=== PATIENT | female | born 1940 | race Caucasian/White ===

== ENCOUNTER 2017-07-03 19:31 | Observation (INO) | payer MEDICARE, OTHER ==
[~2017-07-03] VITALS: Ht 162.6 cm; Wt 69.4 kg
--- NOTE | ~2017-07-03 | EKG ---
[place] [address] [address] [facility] [place] [address] ELECTROCARDIOGRAM REPORT Name: PONCE HASKINS Room #: 354-P [facility] M.R.#: [id number] Admission: 07/03/17 Attend Phys: Krishna Lu MD Discharge: Date of : 36 Report #: [id number] THIS REPORT FOR: //name// [facility] ED Test Date: 2017-07-03 Test Time: 20:12:13 Pat Name: PONCE HASKINS Department: Room: [facility] Gender: F Physician Practice Administrator[place] [facility] 1940 Requested By: Daniel Lopez Order Number: [id number] MD: Pepe Almonte Measurements Intervals [place] Rate: 71 P: 30 [place]: 199 QRS: -35 QRSD: 94 T: 122 QT: 394 QTc: 429 Interpretive Statements Sinus rhythm LVH with secondary repolarization abnormality Inferior infarct, age indeterminate Lateral leads are also involved Compared to ECG 05/24/2016 07:08:19 Ventricular premature complex(es) no longer present Inferior and lateral repolarization abnormality is persistent Electronically Signed On 07-04-2017 8:24:39 CDT by Pepe Almonte [email or web address] <ELECTRONICALLY SIGNED> By: Pepe Almonte MD, [facility] 07/04/17 0824 11 11 Pepe Almonte MD, [facility] /EPI
--- NOTE | ~2017-07-03 | DSS ---
[facility] [place] [address] SHORT STAY SUMMARY Name: PONCE HASKINS Room #: 354-P [facility] Antonio Esqueda#: [id number] Admission: 07/03/17 Attend Phys: Krishna uL MD Discharge: 07/04/17 Date of : 36 Report #: [id number] THIS REPORT FOR: //name// CC: Krishna Lu ATTENDING PHYSICIAN: Krishna Lu M.D. CHIEF COMPLAINT: Epigastric pain and shortness of breath. HISTORY OF PRESENT ILLNESS: The patient is a 77-year-old female with dementia from [facility], who was sent to the Emergency Room with reports of chest pain. They noted she was having some pain in the lower part of the chest and epigastric area with associated shortness of breath and low blood pressure. She was given nitroglycerin en route by EMS, with resolution of her symptoms. By the time she presented to the ER, she had no complaints. She has been pleasantly confused at her baseline overnight, and this morning, is offering no complaints. PAST MEDICAL HISTORY: Hypertension, asthma, dyslipidemia, osteoporosis and coronary artery disease. PAST SURGICAL HISTORY: Unknown. FAMILY HISTORY: Noncontributory. SOCIAL HISTORY: She has been living at [facility] for a number of years. No known chronic alcohol or tobacco use. ALLERGIES: CELEBREX, PENICILLIN, MIRAPEX AND SULFA. MEDICATIONS: Lexapro, aspirin, Advair, gabapentin, Lipitor, multivitamin, Plavix, nitroglycerin sublingual, Singulair, memantine, losartan, Colace, Pepcid, hydrocodone, milk of magnesia, Senokot and Tylenol. REVIEW OF SYSTEMS: She is pleasantly confused. She denies any chest pain, shortness of breath or abdominal symptoms. PHYSICAL EXAMINATION: VITAL SIGNS: Temperature 36.9, pulse 72, respirations 22 and blood pressure 139/77. GENERAL: She is awake, alert, in no distress. HEAD AND NECK: Unremarkable. LUNGS: Clear. HEART: Regular. ABDOMEN: Soft. Normoactive bowel sounds. No rebound or guarding. EXTREMITIES: No edema. NEUROLOGIC: Motor strength 3/5 and equal throughout. [place] [address] SHORT STAY SUMMARY Name: PONCE HASKINS Room #: 354-P [facility] Antonio Esqueda#: [id number] Admission: 07/03/17 Attend Phys: Krishna Lu MD Discharge: 07/04/17 Date of : 36 Report #: [id number], time or situation. LABORATORY DATA: Serial troponin lab levels are negative. EKG showed LVH repolarization changes. HOSPITAL COURSE: She was monitored on telemetry overnight, which was unremarkable, as mentioned. Serial troponin levels were negative. She had no other interval complication. At this point, there are no plans for invasive workup, given her dementia and debility. DISPOSITION: She will return to [facility] resuming all normal medication, with regular diet and activity as tolerated. DNR status and she will follow up with Dr. Lu. <ELECTRONICALLY SIGNED> By: Baljinder Grullon MD 07/04/17 1630 0855 1010 Baljinder Grullon MD /nt
[~2017-07-03 19:31] MED LIST: ACCUNEB SO1.25 MG/1 INH; ADVAIR HFA115 MCG/21 PO; ALBUTEROL2.5 MG/0.5; ASPIR 8181 MG PO; ATORVASTATIN CA40 MG PO; AYR SALINE50 M1; AZITHROMYCIN 2250 MG PO; CARDIZEM CD120 MG PO; CENTRUM SILVER1 EAC2 PO; CLARITIN10 MG PO; COLACE100 MG PO; COMBIVENT; COZAAR 50 MG TA50 M2 PO; DUONEB 2.5-0.5 M3 ML INH; FLOVENT HFA 1110 MCG INH; HYDROCODONE-APA1 TA1 PO; LEVAQUIN 500 M500 M2 PO; LEXAPRO 10 MG T10 M1 PO; LEXAPRO20 MG PO; LOMOTIL TABLET1 EACH PO; MILK OF MA2400 MG/10 PO; MONTELUKAST SOD10 MG PO; MUCINEX600 MG PO; NAMENDA 10 MG T10 MG PO; NEURONTIN100 MG PO; NITROGLYCERIN0.4 MG PO; NORCO 5-325 TA1 EACH PO; PEPCID20 MG PO; PLAVIX 75 MG TA75 M1 PO; PREDNISONE 20 M20 MG PO; RANITIDINE 150150 MG PO; ROBITUSSIN100 MG/53 PO; SENNA8.6 MG PO; SEROQUEL 12.512.5 MG PO; SEROQUEL 25 MG25 M1 PO; TOPROL XL25 MG PO; TOPROL XL50 MG PO; TRAZODONE HCL50 MG PO; TUMS PO; TYLENOL325 MG PO; VOLTAREN GEL 1100 G2 TOP; XOPENEX 0.63 MG/3 M1 INH
[2017-07-03 19:37] VITALS: BP 119/56
[2017-07-03 20:12] LABS: ABSOLUTE NEUTROPHILS 4.4 thou/uL (1.4-8.2); BASOPHILS 0.6 % (0.0-2.0); HEMATOCRIT 38.2 % (37.0-47.0); MCH 32.1 pg (26.0-34.0); MCHC 34.2 g/dL (28.0-37.0); MCV 93.8 fL (80.0-100.0); MONOCYTES 9.5 % (1.0-8.0); PLATELET COUNT 204 thou/uL (150-400); POLYS 57.9 % (36.0-66.0); RBC 4.07 mil/uL (4.20-5.00); WBC 7.6 thou/uL (4.0-11.0)
[2017-07-03 20:19] LABS: ANION GAP 10 mmol/L (7-16); BUN 18 mg/dL (7-18); CALCIUM 9.1 mg/dL (8.5-10.1); CHLORIDE 105 mmol/L (98-107); CO2 25 mmol/L (21-32); CREATININE 1.1 mg/dL (0.6-1.0); GLUCOSE 169 mg/dL (74-106); SODIUM 140 mmol/L (136-145)
[2017-07-03 20:24] LABS: PROTIME 10.3 Seconds (9.3-11.4)
[2017-07-03 20:27] LABS: ALBUMIN 3.5 g/dL (3.4-5.0); MAGNESIUM 1.6 mg/dL (1.8-2.4); SGOT 20 U/L (15-37); SGPT 19 U/L (30-65); TOTAL BILIRUBIN 0.3 mg/dL (<0.1-1.0); TOTAL PROTEIN 6.9 g/dL (6.4-8.2); TROPONIN-I < 0.04 ng/mL (<0.06)
[2017-07-03 21:29] VITALS: BP 103/55
[2017-07-03 22:00] VITALS: BP 131/80
[2017-07-03 23:28] VITALS: BP 119/70
[2017-07-04 03:30] VITALS: BP 123/68
[2017-07-04 07:45] VITALS: BP 139/77
[2017-07-04 11:25] VITALS: BP 151/96
== END 2017-07-04 12:01 ==
LOC: ER 19:31 → EROBS 21:14 → 3W 21:14
PROVIDERS: Emergency Medicine
DX: R07.89 Other chest pain (principal); I10 Essential (primary) hypertension; E78.5 Hyperlipidemia, unspecified; I25.10 Atherosclerotic heart disease of native coronary artery without angina pectoris; F17.210 Nicotine dependence, cigarettes, uncomplicated; G89.29 Other chronic pain; E78.00 Pure hypercholesterolemia, unspecified; J45.909 Unspecified asthma, uncomplicated; F03.90 Unspecified dementia, unspecified severity, without behavioral disturbance, psychotic disturbance, mood disturbance, and anxiety; M81.0 Age-related osteoporosis without current pathological fracture; Z95.5 Presence of coronary angioplasty implant and graft

== ENCOUNTER 2017-09-26 23:22 | Emergency (ER) | payer MEDICARE, OTHER ==
[~2017-09-26] VITALS: Ht 165.1 cm; Wt 68.0 kg
--- NOTE | ~2017-09-26 | EKG ---
[place] [address] [facility] [place] [address] ELECTROCARDIOGRAM REPORT Name: PONCE HASKINS Room #: DEP [facility]#: [id number] Admission: 09/26/17 Attend Phys: Discharge: 09/27/17 Date of : 36 Report #: [id number] THIS REPORT FOR: //name// [facility] ED Test Date: 2017-09-27 Test Time: 00:13:55 Pat Name: PONCE HASKISN Department: Room: Gender: F Accounting Tutor: kelin : 1940 Requested By: Daniel Lopez Order Number: [id number] MD: Pepe Almonte Measurements Intervals [place] Rate: 72 P: 49 [place]: 203 QRS: -31 QRSD: 106 T: 224 QT: 433 QTc: 474 Interpretive Statements Sinus rhythm Left ventricular hypertrophy Inferior infarct, age indeterminate Compared to ECG 07/03/2017 20:12:13 No significant change was found Electronically Signed On 09-28-2017 14:01:05 CDT by Pepe Almonte [email or web address] <ELECTRONICALLY SIGNED> By: Pepe Almonte MD, [facility] 09/28/17 1401 0013 0013 Pepe Almonte MD, [facility] /EPI
[2017-09-26] MEDS ORDERED: VOLTAREN GEL 1100 G1 TOP (23:47)
[2017-09-26] MEDS ORDERED: CENTRUM SILVER1 EAC4 PO (23:49)
[2017-09-26] MEDS ORDERED: ATORVASTATIN CA40 MG PO (23:53)
[2017-09-26] MEDS ORDERED: GABAPENTIN 100100 MG PO (23:54)
[2017-09-26] MEDS ORDERED: ALBUTEROL2.5 MG/31 INH (23:57)
[2017-09-26] MEDS ORDERED: PLAVIX 75 MG TA75 M1 PO (23:58)
[2017-09-26] MEDS ORDERED: PEPCID20 MG PO (23:58)
[2017-09-26] MEDS ORDERED: SINGULAIR 10 MG10 M1 PO (23:58)
[2017-09-26] MEDS ORDERED: CARDIZEM CD120 MG PO (23:58)
[2017-09-26] MEDS ORDERED: HYDROCODONE-AP1 EAC6 PO (23:59)
[2017-09-26] MEDS ORDERED: ADVAIR HFA 115-12 G1 INH (23:59)
[2017-09-27] MEDS ORDERED: NAMENDA 10 MG T10 MG PO
[2017-09-27] MEDS ORDERED: MILK OF MA2400 MG/10 PO
[2017-09-27] MEDS ORDERED: TYLENOL325 MG PO (00:01)
[2017-09-27] MEDS ORDERED: EVAC-U-GEN8.6 MG PO (00:01)
[2017-09-27] MEDS ORDERED: NITROSTAT0.4 M1 SUBLING (00:02)
[2017-09-27 00:08] LABS: ABSOLUTE NEUTROPHILS 9.3 thou/uL (1.4-8.2); BASOPHILS 0.3 % (0.0-2.0); EOSINOPHILS 0.1 % (0.0-3.0); HEMATOCRIT 38.9 % (37.0-47.0); HEMOGLOBIN 13.1 gm/dL (12.0-15.0); LYMPHOCYTES 11.7 % (24.0-44.0); MCH 31.7 pg (26.0-34.0); MCHC 33.7 g/dL (28.0-37.0); MCV 93.9 fL (80.0-100.0); PLATELET COUNT 199 thou/uL (150-400); POLYS 82.9 % (36.0-66.0); RBC 4.14 mil/uL (4.20-5.00); RDW 12.6 % (10.5-14.5); WBC 11.2 thou/uL (4.0-11.0)
[2017-09-27 00:23] LABS: ALBUMIN 3.7 g/dL (3.4-5.0); BUN 19 mg/dL (7-18); CALCIUM 8.9 mg/dL (8.5-10.1); CHLORIDE 104 mmol/L (98-107); CREATININE 0.8 mg/dL (0.6-1.0); GLUCOSE 129 mg/dL (74-106); LIPASE 129 U/L (73-393); MAGNESIUM 1.6 mg/dL (1.8-2.4); POTASSIUM 3.6 mmol/L (3.5-5.1); SGOT 24 U/L (15-37); SGPT 21 U/L (30-65); SODIUM 138 mmol/L (136-145); TOTAL BILIRUBIN 0.4 mg/dL (<0.1-1.0); TOTAL PROTEIN 7.3 g/dL (6.4-8.2); TROPONIN-I <0.06 ng/mL (<0.06)
[2017-09-27 00:29] LABS: ANION GAP 10 mmol/L (7-16); CO2 24 mmol/L (21-32)
[2017-09-27] MEDS ORDERED: ZOFRAN ODT8 MG PO (01:10)
[2017-09-27 01:45] LABS: URINE BILIRUBIN NEGATIVE (Negative); URINE BLOOD NEGATIVE (Negative); URINE CLARITY CLEAR; URINE COLOR YELLOW; URINE GLUCOSE-RANDOM* NEGATIVE (Negative); URINE KETONES TRACE (Negative); URINE NITRITE-REFLEX NEGATIVE (Negative); URINE PROTEIN (DIPSTICK) NEGATIVE (Negative); URINE SPECIFIC GRAVITY 1.015 (1.005-1.035)
[2017-09-27 01:54] LABS: URINE LEUKOCYTES-REFLEX TRACE (Negative)
== END 2017-09-27 01:49 | disposition home or self-care (01) ==
LOC: ER 23:22
PROVIDERS: Emergency Medicine
DX: M17.0 Bilateral primary osteoarthritis of knee (principal); F03.90 Unspecified dementia, unspecified severity, without behavioral disturbance, psychotic disturbance, mood disturbance, and anxiety; R11.2 Nausea with vomiting, unspecified; E78.5 Hyperlipidemia, unspecified; J45.909 Unspecified asthma, uncomplicated; I10 Essential (primary) hypertension; F32.9 Major depressive disorder, single episode, unspecified; F17.210 Nicotine dependence, cigarettes, uncomplicated; Z95.5 Presence of coronary angioplasty implant and graft; Z88.0 Allergy status to penicillin; Z88.2 Allergy status to sulfonamides; Z88.8 Allergy status to other drugs, medicaments and biological substances; Z88.6 Allergy status to analgesic agent; W18.39XA Other fall on same level, initial encounter; Y92.002 Bathroom of unspecified non-institutional (private) residence as the place of occurrence of the external cause; Y93.89 Activity, other specified; Y99.8 Other external cause status